=== PATIENT | male | born 1955 | race Caucasian/White ===

== ENCOUNTER 2021-07-21 09:31 | Observation (INO) ==
[2021-07-21] MEDS ORDERED: 0.9 % Sodium Chloride 1,000 ML IVC ONE (09:48)
[2021-07-21] MEDS ORDERED: Prochlorperazine 10 MG/2 ML VIAL IVP ONE (10:01)
[2021-07-21] MEDS ORDERED: *HR* OxyCODONE/APAP 5/325 TABLET PO ONE (10:15)
[2021-07-21 10:18] LABS: Basophils % 0.5 %; Eosinophils % 0.2 %; Hematocrit 32.3 % (37.5-50.1); Hemoglobin 11.6 g/dL (12.9-16.9); Immature Granulocytes % 0.2 % (0-4); Lymphocytes # 0.5 K/mcL (0.6-4.6); Lymphocytes % 11.3 %; Mean Corpuscular HGB Conc 35.9 g/dL (31.6-35.5); Mean Corpuscular Hemoglobin 30.4 pg (28.0-33.3); Mean Corpuscular Volume 84.6 fL (83.0-100.0); Mean Platelet Volume 8.3 fL (9.4-12.4); Monocytes # 0.4 K/mcL (0.0-1.3); Monocytes % 8.7 %; Neutrophils # 3.3 K/mcL (1.6-8.9); Platelet Count 175 K/mcL (140-400); Red Blood Count 3.82 M/mcL (4.19-5.50); Red Cell Distribution Width 13.3 % (11.5-14.5); Segmented Neutrophils % 79.1 %; White Blood Count 4.2 K/mcL (4.3-11.1)
[2021-07-21 10:35] LABS: Alanine Aminotransferase 9 Units/L (7-52); Albumin 3.7 g/dL (3.5-5.7); Albumin/Globulin Ratio 1.4 (1.1-2.2); Alkaline Phosphatase 67 Units/L (34-104); Amylase 47 Units/L (29-103); Aspartate Amino Transferase 15 Units/L (13-39); BUN/Creatinine Ratio 15 (6-26); Bilirubin,Direct 0.1 mg/dL (0.0-0.2); Bilirubin,Indirect 0.4 mg/dL (0.0-1.0); Bilirubin,Total 0.5 mg/dL (0.3-1.0); Blood Urea Nitrogen 9 mg/dL (8-23); Calcium 9.2 mg/dL (8.6-10.3); Carbon Dioxide 32 mEq/L (23-29); Chloride 87 mEq/L (98-107); Globulin 2.6 g/dL (2.4-3.5); Glucose 108 mg/dL (70-105); Osmolality,Calculated 257 (280-300); Potassium 3.9 mEq/L (3.5-5.1); Sodium 124 mEq/L (136-145); Total Protein 6.3 g/dL (6.4-8.9); eGFR For African Americans > 60 (> 60); eGFR For Non-African Americans > 60 (> 60)
[2021-07-21] MEDS: 0.9 % Sodium Chloride 1,000 ML IVC SCH ×2 (10:47→19:01)
[2021-07-21 11:37] LABS: Bilirubin,Urine Negative (Negative); Blood,Urine Negative (Negative); Clarity,Urine Slightly Cloudy (Clear); Color,Urine Yellow (Yellow); Glucose,Urine (UA) Normal (Normal); Ketones,Urine Negative (Negative); Leukocyte Esterase,Urine Negative (Negative); Nitrite,Urine Negative (Negative); Protein,Urine Negative (Neg-Trace); Urobilinogen,Urine Normal (Normal)
[2021-07-21 11:43] LABS: Amorphous Sediment,Urine Many per hpf (None-Few); Squamous Epithelial Cell,Urine Few per hpf (None-Few); WBC,Urine 0-3 per hpf (0-3)
[2021-07-21] MEDS ORDERED: Albuterol 2.5 MG/3 ML NEBULIZER IH SCH (15:30)
[2021-07-21] MEDS: *HR* OxyCODONE Immed Rel 5 MG TABLET PO PRN ×2 (16:04→21:22)
[2021-07-21] MEDS: Nicotine 21 MG PATCH.TD24 TD SCH (16:23)
[2021-07-21] MEDS: Budesonide/Formoterol 80/4.5 1 PUFF INH IH SCH (21:06)
[2021-07-22] MEDS: *HR* OxyCODONE Immed Rel 5 MG TABLET PO PRN (05:13)
[2021-07-22] MEDS ORDERED: *HR* Enoxaparin 40 MG/0.4 ML SYRINGE SQ SCH (06:00)
[2021-07-22 06:57] VITALS: TEMP 97.8
[2021-07-22] MEDS: Nicotine 21 MG PATCH.TD24 TD SCH (08:46)
[2021-07-22] MEDS ORDERED: Aspirin 81 MG TAB.CHEW PO SCH (09:00)
[2021-07-22] MEDS ORDERED: Valsartan 80 MG TABLET PO SCH (09:00)
[2021-07-22] MEDS ORDERED: polyethylene glycoL 3350 17 GM POWD.PACK PO SCH (09:00)
[2021-07-22] MEDS ORDERED: amLODIPine 5 MG TABLET PO SCH (09:00)
[2021-07-22] MEDS: Budesonide/Formoterol 80/4.5 1 PUFF INH IH SCH (09:43)
[2021-07-22 09:46] VITALS: RESP 18
[2021-07-22] MEDS ORDERED: Albuterol 2.5 MG/3 ML NEBULIZER IH SCH (10:00)
[2021-07-22 10:22] VITALS: BP 146/87; PULSE 100
[2021-07-22 10:35] VITALS: O2SAT 97
== END 2021-07-22 12:02 | disposition hospice, home (50) ==
LOC: INPPIK 09:31 → EMEROOPIK 09:31 → INPPIK 15:10
PROVIDERS: ADMIT Internal Medicine; ATTEND Internal Medicine